=== PATIENT | male | born 1955 | race Caucasian/White ===

== ENCOUNTER 2024-08-09 15:31 | Emergency (ER) | payer MEDICARE, SELFPAY ==
[2024-08-09] VITALS (8 sets, daily range): BP systolic 107–116; BP diastolic 65–74; PULSE 87–100; RESP 14–24; O2SAT 97–100; BMI 30.4
--- NOTE | 2024-08-09 15:47 | DI.RAD.S_ITS ---
PROCEDURE: XR CHEST 1V INDICATIONS: chest pain TECHNIQUE: One view of the chest was acquired. COMPARISON: None. FINDINGS AND IMPRESSION: No dense airspace disease or pleural effusion on this single view study. Low lung volumes. Normal heart size. Unremarkable osseous structures. Dictated by: Gagan Rodríguez M.D. on 08/09/2024 at 16:05 Approved by: Gagan Rodríguez M.D. on 08/09/2024 at 16:07
--- NOTE | 2024-08-09 15:51 | EKG_ITS ---
[address] [address] Test Date: 2024-08-09 Pat Name: Mayank Ash Department: Room: Gender: Male Professor Of Spanish: DONNIE : 1955 Requested By: Order Number: [id number] Reading MD: Rashawn Hurtado MD Measurements Intervals [place] Rate: 83 P: 57 RI: 222 QRS: 5 QRSD: 104 T: 16 QT: 380 QTc: 446 Interpretive Statements Sinus rhythm with 1st degree AV block Cannot rule out Anterior infarct , age undetermined Electronically Signed On 08-11-2024 8:23:16 PDT by Rashawn Hurtado MD
[2024-08-09 16:05] LABS: Add Manual Diff / Slide Review NO; Basophils Absolute Auto 100 /uL (0-100); Basophils Percent Auto 0.6 % (0-2); Eosinophils Absolute Auto 700 /uL (0-450); Eosinophils Percent Auto 6.7 % (2-4); Hemoglobin 14.6 g/dL (13.5-17.5); Lymphocytes Absolute Auto 2500 /uL (1100-4500); Lymphocytes Percent Auto 23.8 % (25-40); Mean Corpuscular HGB Conc 34.7 % (30-36); Mean Corpuscular Hemoglobin 29.9 PG (26-34); Mean Corpuscular Volume 86.1 fL (80-100); Monocytes Absolute Auto 800 /uL (0-900); Monocytes Percent Auto 7.4 % (3-14); Neutrophils Absolute Auto 6500 /uL (1500-7000); Neutrophils Percent Auto 61.5 % (50-75); Platelet Count 241 X10^3/uL (150-400); Red Blood Cell Count 4.87 X10^6/uL (4.5-5.9); Red Cell Distribution Width 16.4 % (11.6-14.8); White Blood Cell Count 10.5 X10^3/uL (4.5-11.0)
[2024-08-09 16:16] LABS: INR 1.1 (0.9-1.3); Prothrombin Time 12.5 SECONDS (9.4-12.5)
[2024-08-09 16:18] LABS: PTT Partial Thromboplastin Tim 30 SECONDS (25.1-36.5)
[2024-08-09 16:20] LABS: Alanine Aminotransferase 30 IU/L (<50); Albumin 4.8 g/dL (3.5-5.0); Albumin Globulin Ratio 1.8 (1.0-2.8); Alkaline Phosphatase 51 U/L (38-126); Aspartate Aminotransferase 26 IU/L (17-59); BUN Creatinine Ratio 13.3 (6-22); Bilirubin Total 0.8 mg/dL (0.2-1.3); Blood Urea Nitrogen 16 mg/dL (9-20); Calcium 10.3 mg/dL (8.4-10.2); Carbon Dioxide 22 mmol/L (22-32); Chloride 100 mmol/L (98-107); Creatine Kinase 68 U/L (55-170); Estimated Glomerular Filt Rate > 60 mL/min (>60); Globulin 2.6 g/dL (1.7-4.1); Glucose 106 mg/dL (80-110); HEMOLYSIS < 15 (0-50); Lipase 128 U/L (23-300); Magnesium 1.5 mg/dL (1.6-2.3); Potassium 3.5 mmol/L (3.4-5.1); Sodium 137 mmol/L (137-145); Total Protein 7.4 g/dL (6.3-8.2)
[2024-08-09 16:31] LABS: NT-proBNP (BNP-Adult 18+) 29 pg/mL (<125); Troponin I < 0.012 ng/mL (0.01-0.034)
[2024-08-09 17:44] LABS: Troponin I < 0.012 ng/mL (0.01-0.034)
--- NOTE | 2024-08-09 18:57 | ED.GENADULT ---
HPI - General Adult General Chief complaint: Syncope Stated complaint: syncope Time Seen by Provider: 08/09/24 17:59 Source: EMS Mode of arrival: EMS History of Present Illness HPI narrative: 69-year-old gentleman with a history of hypertension recently started on Flomax for BPH, reflux was out to lunch today and had a near syncopal episode. Medics report that his initial blood pressure was 71/55. Patient has no specific complaints or concerns. On arrival in the emergency department blood pressure is up to 116/68. The patient has not been having chest pain he notes that he has been having some dizziness, he saw his urologist recently who assumed this was due to his Flomax, recommended he go to [id number] dosing and a different prescription was given. Review of Systems Review of Systems Narrative: Pertinent positive and negative findings as per HPI Patient History Medical History (Updated 08/09/24 @ 19:06 by Marcia Bahena MD) COPD (chronic obstructive pulmonary disease) Acid reflux BPH (benign prostatic hyperplasia) Hypertension Hyperlipidemia Social History Smoking Status: Never smoker Smoking Status: Never smoker Exam Initial Vital Signs Initial Vital Signs: Vital Signs Pulse Rate 87 08/09/24 16:10 Respiratory Rate 20 08/09/24 16:10 Pulse Oximetry 97 08/09/24 16:10 General: Healthy appearing, in no acute distress. Able to give a complete and coherent history. Well-nourished well-developed HEENT: Moist mucous membranes, normal sclera with reactive pupils, Neck: No JVD, supple Respiratory: Lungs are clear to auscultation, no wheezing no rales no rhonchi. Full and symmetrical air movement Cardiac: Regular rate and rhythm no murmurs no bruits Abdomen: Soft, nontender, no rebound or guarding, no flank pain Skin: Warm and dry, no rashes Neurologic: Grossly neurologically intact with no obvious asymmetries or abnormalities Extremities: No trauma, well perfused Psych: Cooperative, appropriate insight and affect Course Orders Ordered: Discontinued Medications Aspirin (Aspirin 81 Mg Chew Tab) 324 mg PO NOW ONE Stop: 08/09/24 15:48 Last Admin: 08/09/24 16:59 Dose: Not Given Documented By: RLS Vital Signs Vital signs: Vital Signs - 8 hr 08/09/24 16:10 08/09/24 16:30 08/09/24 16:30 Pulse Rate 87 91 H Respiratory Rate 20 Blood Pressure 107/70 Pulse Oximetry 97 97 Oxygen Delivery Method 08/09/24 16:53 08/09/24 16:53 08/09/24 17:00 Pulse Rate 90 Respiratory Rate 16 Blood Pressure 111/68 113/72 Pulse Oximetry 100 Oxygen Delivery Method 08/09/24 17:00 08/09/24 17:30 08/09/24 17:30 Pulse Rate 91 H 94 H Respiratory Rate 20 14 Blood Pressure 114/69 Pulse Oximetry 98 98 Oxygen Delivery Method 08/09/24 18:00 08/09/24 18:00 08/09/24 18:30 Pulse Rate 95 H Respiratory Rate 15 Blood Pressure 111/65 116/68 Pulse Oximetry 99 Oxygen Delivery Method Room Air 08/09/24 18:30 Pulse Rate 97 H Respiratory Rate 24 Blood Pressure Pulse Oximetry 99 Oxygen Delivery Method Medical Decision Making Lab Data 08/09/24 15:15 08/09/24 15:15 Labs: Lab Results 08/09/24 08/09/24 Range/Units 15:15 17:13 WBC 10.5 (4.5-11.0) X10^3/uL RBC 4.87 (4.5-5.9) X10^6/uL Hgb 14.6 (13.5-17.5) g/dL Hct 42.0 (41-53) % MCV 86.1 (80-100) fL MCH 29.9 (26-34) PG MCHC 34.7 (30-36) % RDW 16.4 H (11.6-14.8) % Plt Count 241 (150-400) X10^3/uL Neut % (Auto) 61.5 (50-75) % Lymph % (Auto) 23.8 L (25-40) % [place] % (Auto) 7.4 (3-14) % Eos % (Auto) 6.7 H (2-4) % Baso % (Auto) 0.6 (0-2) % Neut # (Auto) 6500 (3136-8899) /uL Lymph # (Auto) 2500 (8538-6743) /uL [place] # (Auto) 800 (0-900) /uL Eos # (Auto) 700 H (0-450) /uL Baso # (Auto) 100 (0-100) /uL PT 12.5 (9.4-12.5) SECONDS INR 1.1 (0.9-1.3) APTT 30 (25.1-36.5) SECONDS Sodium 137 (137-145) mmol/L Potassium 3.5 (3.4-5.1) mmol/L Chloride 100 (98-107) mmol/L Carbon Dioxide 22 (22-32) mmol/L BUN 16 (9-20) mg/dL Creatinine 1.20 (0.66-1.25) mg/dL Estimated GFR > 60 (>60) mL/min BUN/Creatinine Ratio 13.3 (6-22) Glucose 106 (80-110) mg/dL Calcium 10.3 H (8.4-10.2) mg/dL Magnesium 1.5 L (1.6-2.3) mg/dL Total Bilirubin 0.8 (0.2-1.3) mg/dL AST 26 (17-59) IU/L ALT 30 (<50) IU/L Alkaline Phosphatase 51 (38-126) U/L Total Creatine Kinase 68 (55-170) U/L Troponin I < 0.012 < 0.012 (0.01-0.034) ng/mL NT-Pro-B Natriuret Pep 29 (<125) pg/mL Total Protein 7.4 (6.3-8.2) g/dL Albumin 4.8 (3.5-5.0) g/dL Globulin 2.6 (1.7-4.1) g/dL Albumin/Globulin Ratio 1.8 (1.0-2.8) Lipase 128 (23-300) U/L [facility] Narrative Medical decision making narrative: 69-year-old gentleman with a history of hypertension, hyperlipidemia recent 25 lb weight loss with significant effort and GLP 1 addition. Recent addition of Flomax for BPH. Blood pressure has been significantly low any had a near syncopal episode presumably secondary to orthostatic hypotension. CBC is unremarkable Chemistries are reassuring Initial and repeat troponin are undetectable BNP is not elevated Exam is entirely benign In light of his weight loss and continued dizziness with adding Flomax, likely exacerbating his orthostatic hypotension will recommend the following changes Restart Flomax daily as it is helping with his BPH Discontinue chlorthalidone Decrease lisinopril dose to 20 mg, half a pill If blood pressure in the afternoon is below 130/80, do not take evening diltiazem dose We will need close follow up with his primary care physician and daily blood pressure checks, patient is agreeable and we will follow through with all the follow up appointments. At this point there was no evidence of acute coronary syndrome, stroke, infection/sepsis, acute anemia or alternate explanation that would require further workup or hospitalization today. Questions are answered and he is safe for discharge Discharge Plan Departure Patient Disposition: Home Clinical Impression: Syncope due to orthostatic hypotension Activity Restrictions/Additional Instructions: I have great news for you today. Your workup was very reassuring. There was no sign of a stroke, heart attack, liver or kidney problems or significant infection With your recent weight loss, your blood pressure is simply too low, you do not need as many of your blood pressure medications. Following are my recommendationsIn Restart Flomax daily as it is helping with your BPH Discontinue chlorthalidone Decrease lisinopril dose to 20 mg, half a pill, daily If blood pressure in the afternoon is below 130/80, do not take evening diltiazem dose You will need to keep track of your blood pressures and schedule a follow up appointment with your primary care physician to review all of these changes. Congratulations on the weight loss and being able to get rid of medications! If you find that you are getting worse or develop any new symptoms, please feel free to return to the emergency department for further evaluation. Stand Alone Forms: Patient Portal/API/Survey
== END 2024-08-09 19:24 | disposition home or self-care (01) ==
PROVIDERS: Emergency Medicine; Emergency Provider Emergency Medicine
DX: I95.1 Orthostatic hypotension (principal); N40.0 Benign prostatic hyperplasia without lower urinary tract symptoms
CPT/HCPCS: 71045; 80053; 82550; 83690; 83735; 83880; 84484; 85025; 85610; 85730; 93005; 93010; 99283; 99284